=== PATIENT | male | born 1950 | race Caucasian/White ===

== ENCOUNTER 2017-03-09 06:09 | Inpatient (IN) | payer MEDICARE, BC ==
[2017-03-09] MEDS ORDERED: KETOROLAC TROMETHAMINE 30 MG/ML SOL IM ONE (08:43)
[2017-03-09] MEDS ORDERED: KETOROLAC TROMETHAMINE 30 MG/ML SOL ONE (08:44)
[2017-03-09 09:30] LABS: BASOPHILS % (AUTO) 1 % (0-3); EOSINOPHILS % (AUTO) 2 % (0-9); HEMATOCRIT 23 % (39-53); MEAN CORPUSCULAR HGB CONC 35.2 gm/dl (32.0-36.0); MEAN CORPUSCULAR VOLUME 97 fL (80-100); MONOCYTES % (AUTO) 11.2 % (0-12)
[2017-03-09 09:42] LABS: ALBUMIN 2.7 gm/dl (3.4-5.0); POTASSIUM 4.4 mMol/L (3.5-5.1)
[2017-03-09] MEDS ORDERED: SODIUM CHLORIDE 0.9% 1000ML 1,000 ML IV SCH (10:15)
[2017-03-09] MEDS ORDERED: ONDANSETRON HCL 4 MG/2 ML SOL IV PRN (11:09)
[2017-03-09] MEDS: SODIUM CHLORIDE 0.9% 1000ML 1,000 ML IV SCH ×2 (11:27→21:27)
[2017-03-09] MEDS: SODIUM CHLORIDE 0.9% FLUSH 10 ML SOL IV PRN ×2 (11:28→22:26)
[2017-03-09] MEDS: HYDROMORPHONE HCL 2 MG/ML SOL IV PRN ×3 (11:29→22:24)
[2017-03-09] MEDS: MAGNESIUM HYDROXIDE 30 ML SUS PO PRN (12:26)
[2017-03-09] MEDS ORDERED: NITROGLYCERIN 0.4 MG TAB SL PRN (13:44)
[2017-03-09] MEDS: BISACODYL 10 MG SUP PR PRN (13:57)
[2017-03-09] MEDS: METOPROLOL TARTRATE 25 MG TAB PO SCH (20:58)
[2017-03-10] MEDS: DIAZEPAM 5 MG TAB PO PRN (01:16)
[2017-03-10] MEDS: HYDROMORPHONE HCL 2 MG/ML SOL IV PRN ×3 (02:11→11:20)
[2017-03-10] MEDS: SODIUM CHLORIDE 0.9% FLUSH 10 ML SOL IV PRN (02:12)
[2017-03-10 07:15] LABS: POTASSIUM 4.3 mMol/L (3.5-5.1)
[2017-03-10 07:18] LABS: BASOPHILS % (AUTO) 1 % (0-3); EOSINOPHILS % (AUTO) 3 % (0-9); HEMATOCRIT 22 % (39-53); MEAN CORPUSCULAR VOLUME 96 fL (80-100); MONOCYTES % (AUTO) 9.9 % (0-12); NEUTROPHILS % (AUTO) 73.7 % (37-80)
[2017-03-10 07:34] LABS: ANISOCYTOSIS SLIGHT AMT
[2017-03-10] MEDS: SODIUM CHLORIDE 0.9% 1000ML 1,000 ML IV SCH ×5 (07:34→22:29)
[2017-03-10] MEDS: AMLODIPINE 5 MG TAB PO SCH (09:00)
[2017-03-10] MEDS: ACETAMINOPHEN 325 MG PO SCH ×3 (09:00→21:09)
[2017-03-10] MEDS: METOPROLOL TARTRATE 25 MG TAB PO SCH ×2 (09:00→21:10)
[2017-03-10] MEDS: OXYCODONE HYDROCHLORIDE 5 MG TAB PO PRN (21:09)
[2017-03-10] MEDS: HYDROMORPHONE 1 MG/ML SYRINGE IV PRN (22:13)
[2017-03-11] MEDS: ACETAMINOPHEN 325 MG PO SCH ×4 (01:53→20:48)
[2017-03-11] MEDS: HYDROMORPHONE 1 MG/ML SYRINGE IV PRN ×2 (01:53→07:02)
[2017-03-11] MEDS: OXYCODONE HYDROCHLORIDE 5 MG TAB PO PRN ×3 (02:56→21:57)
[2017-03-11] MEDS: SODIUM CHLORIDE 0.9% 1000ML 1,000 ML IV SCH (06:13)
[2017-03-11] MEDS: SODIUM CHLORIDE 0.9% FLUSH 10 ML SOL IV SCH ×3 (07:03→20:49)
[2017-03-11 07:12] LABS: CALCIUM 7.8 mg/dl (8.5-10.1); POTASSIUM 3.8 mMol/L (3.5-5.1)
[2017-03-11] MEDS: DIAZEPAM 5 MG TAB PO PRN (07:32)
[2017-03-11] MEDS: METOPROLOL TARTRATE 25 MG TAB PO SCH ×2 (08:17→20:48)
[2017-03-11] MEDS: AMLODIPINE 5 MG TAB PO SCH (08:21)
[2017-03-11] MEDS: FERROUS SULFATE 325 MG TAB PO SCH ×2 (11:12→20:48)
[2017-03-11] MEDS: MAGNESIUM HYDROXIDE 30 ML SUS PO PRN (13:15)
[2017-03-11 15:54] VITALS: RESP 18
[2017-03-11] MEDS: SODIUM CHLORIDE 0.9% FLUSH 10 ML SOL IV PRN (16:34)
[2017-03-11] MEDS: OXYCODONE HYDROCHLORIDE 10 MG TER PO SCH (18:21)
[2017-03-11] MEDS: SENNOSIDES A AND B 8.6 MG TAB PO SCH (20:48)
[2017-03-12] MEDS: ACETAMINOPHEN 325 MG PO SCH ×3 (03:14→14:19)
[2017-03-12] MEDS: OXYCODONE HYDROCHLORIDE 5 MG TAB PO PRN ×3 (03:31→14:21)
[2017-03-12] MEDS: SODIUM CHLORIDE 0.9% FLUSH 10 ML SOL IV SCH ×3 (03:31→17:58)
[2017-03-12 07:32] LABS: BASOPHILS % (AUTO) 2 % (0-3); EOSINOPHILS % (AUTO) 8 % (0-9); HEMATOCRIT 22 % (39-53); MEAN CORPUSCULAR HGB CONC 34.4 gm/dl (32.0-36.0); MEAN CORPUSCULAR VOLUME 96 fL (80-100); MONOCYTES % (AUTO) 9.8 % (0-12)
[2017-03-12] MEDS: METOPROLOL TARTRATE 25 MG TAB PO SCH (08:05)
[2017-03-12] MEDS: SENNOSIDES A AND B 8.6 MG TAB PO SCH (08:05)
[2017-03-12] MEDS: FERROUS SULFATE 325 MG TAB PO SCH (08:05)
[2017-03-12] MEDS: MAGNESIUM HYDROXIDE 30 ML SUS PO PRN (08:15)
[2017-03-12] MEDS ORDERED: SODIUM CHLORIDE 0.9% 250 ML 250 ML IV SCH (10:00)
[2017-03-12 10:28] LABS: ABO O; ANTIBODY SCREEN Negative; RH TYPE Positive; UNIT TYPE O POSITIVE
[2017-03-12 10:29] LABS: UNIT TYPE O POSITIVE
[2017-03-12 13:16] VITALS: TEMP 97.8
[2017-03-12] MEDS: BISACODYL 10 MG SUP PR PRN (15:18)
[2017-03-12 16:09] VITALS: BP 153/84; PULSE 71; O2SAT 99
[2017-03-12] MEDS: OXYCODONE HYDROCHLORIDE 10 MG TER PO SCH (17:57)
[2017-03-12] MEDS ORDERED: AMLODIPINE 5 MG TAB PO SCH (18:00)
== END 2017-03-12 18:55 | disposition home or self-care (01) | DRG 390 ==
LOC: ED 06:09 → EDSTATUS 10:38 → ACUTE CARE 10:39 → UNDOADMIN 10:39 → ED 10:55 → UNDOADMIN 10:55 → ACUTE CARE 10:55 → EDSTATUS 15:51
PROVIDERS: ADMIT Family Medicine; ATTEND Family Medicine
PROC: F01ZBFZ Bed Mobility Assessment using Assistive, Adaptive, Supportive or Protective Equipment (ICD-10-PCS; 2017-03-09)
PROC: F01ZBZZ Bed Mobility Assessment (ICD-10-PCS; 2017-03-09)
PROC: F01ZCZZ Transfer Assessment (ICD-10-PCS; 2017-03-09)
PROC: 30233N1 Transfusion of Nonautologous Red Blood Cells into Peripheral Vein, Percutaneous Approach (ICD-10-PCS; principal; 2017-03-12)
DX: K56.0 Paralytic ileus (principal); R10.33 Periumbilical pain; D64.89 Other specified anemias; Z98.1 Arthrodesis status
CPT/HCPCS: 36415; 74020; 80048; 80053; 82150; 85018; 85025; 85610; 85730; 86850; 86900; 86901; 86920; 94762; 96372; 99070; 99284; 99285; J1170; J1885; P9016